=== PATIENT | female | born 1985 | race Caucasian/White ===

== ENCOUNTER 2017-05-29 00:30 | Observation (INO) | payer OTHER ==
--- NOTE | 2017-05-29 01:28 | OBHP ---
Datetime: 05/29/2017 01:16 IP Adm Impression: Term, intrauterine Admit Comment, IP Provider: 32 y/o @ 39.5 wks GA MARCO ANTONIO 05/31/17 c/o of ctxirregular since 6pm increasinign over past 2 hours over ever y5-6 min, 09/15, densoham sany lof, vb, ctx, +FM. Pt reports a small drop come out when she got into bed, roge any large gush. pt reports was examined by pmd [facility] and was closed on exam. 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: Denies hx of abnormal pap, fibaoird, ovairan cyst, STI PMH: Anemia PSH: denies CHX: GM: cervical cancer MEDS: PNV< Iron (limited duration , unable to tolerate) SHX: negative etoh/tobacc/durgs NKDA A/P 32 y/o @ 39.5 wks GA not in labor -plan as per pmd Pelvic Type - PN: Adequate Extremities - PN: Normal Abdomen - PN: Normal Back - PN: Normal Breast - PN: Not Done Lungs - PN: Normal Heart - PN: Normal Thyroid - PN: Not Done Neurologic - PN: Normal HEENT - PN: Normal General - PN: Normal Presentation-Admit: Vertex FHR - Baseline A Provider: 150 Membranes, Provider: Intact Contraction Comments Provider: q 5 min/iregular Comments, ACOG Physical Exam: Amnisure ngeative negative pooling , ferning, nitrazine limited exam: clsoed, long, posteriod Gestation - Est Wks by US: 39.5 EGA AdmitDate IP: 39.5 Vital Signs Provider: Reviewed; Within Normal Limits IP Chief Complaint: Uterine contractions NICHD Variability Prov Fetus A: Moderate 6-25bpm NICHD Accel Fetus A IP Provider: 15X15 FHR Category Provider Fetus A: Category I NICHD Decel Fetus A IP Provider: None Dilatation, Provider: 0 Genitourinary Exam: Normal DTRs - PN: Normal
[2017-05-29 01:37] VITALS: BMI 29.8
[2017-05-29] MEDS ORDERED: Lactated Ringer's 1,000 ML IV SCH (01:45)
[2017-05-29 02:17] LABS: BASO % 0.4 % (0.0-2.0); EOS # 0.1 K/uL (0.0-0.7); EOS % 0.9 % (0.0-4.0); HEMOGLOBIN 10.1 g/dL (11.0-16.0); LYMPH % 24.5 % (20.0-40.0); MEAN CELL VOLUME 79.5 fL (81.0-99.0); MEAN CORPUSCULAR HEMOGLOBIN 26.2 pg (27.0-31.0); MEAN PLATELET VOLUME 10.3 fL (7.2-11.7); MONO # 0.3 K/uL (0.0-0.8); MONO % 4.1 % (0.0-10.0); NEUT # 5.7 K/uL (1.8-7.0); NEUT % 70.1 % (50.0-75.0); NRBC % 0.1 % (0.0-2.0); RBC 3.85 Mil/uL (3.80-5.20); RED CELL DISTRIBUTION WIDTH 15.7 % (11.5-14.5); WHITE BLOOD COUNT 8.2 K/uL (4.8-10.8)
[2017-05-29 02:23] LABS: SQUAMOUS EPITHIAL 1 /hpf (0-5); URINE BACTERIA RARE (<OCC); URINE BILIRUBIN NEGATIVE (NEGATIVE); URINE BLOOD NEGATIVE (NEGATIVE); URINE CLARITY Clear (Clear); URINE COLOR Straw (YELLOW); URINE GLUCOSE (UA) NORMAL (Normal); URINE LEUKOCYTE ESTERASE TRACE Leu/uL (Negative); URINE NITRATE NEGATIVE (NEGATIVE); URINE PROTEIN NEGATIVE (NEGATIVE); URINE UROBILINOGEN NORMAL mg/dL (0.2-1.0)
[2017-05-29 02:33] LABS: ALB/GLOB RATIO 0.9 (1.0-2.1); ALBUMIN 3.5 g/dL (3.5-5.0)
[2017-05-29 02:36] LABS: ALT/SGPT 18 U/L (9-52); AST/SGOT 17 U/L (14-36); BLOOD UREA NITROGEN 9 mg/dL (7-17); CALCIUM 8.8 mg/dl (8.6-10.4); GFR AFRICAN-AMERICAN > 60; GFR NON-AFRICAN AMERICAN > 60
--- NOTE | 2017-05-29 09:39 | OBDCSUM ---
Datetime: 05/29/2017 09:37 Discharged to, Provider: Home Follow up at, Provider: Dr Mcclendon Discharge Time: 05/29/2017 09:37 Follow up in weeks, Provider: this week Discharge Comment, Provider: labor precautions given Discharge Diagnosis Prov Other: false labor Contraception after Delivery: Not Planning to Use
--- NOTE | 2017-05-29 09:39 | OBPN ---
Datetime: 05/29/2017 01:16 Membranes, Provider: Intact Contraction Comments Provider: q 5 min/iregular FHR - Baseline A Provider: 150 Gestation - Est Wks by US: 39.5 Presentation-Admit: Vertex IP Progress Note Comment: pt admited for observation overnight pt seen and reexamined denies any pain, reports irregular non painful contraction, denies any lof, vb, +FM Pt was reexamined, uncahnged closed on exam plan dsicharge as per pmd labor purecaiotn given Vital Signs Provider: Reviewed; Within Normal Limits NICHD Accel Fetus A IP Provider: 15X15 FHR Category Provider Fetus A: Category I NICHD Variability Prov Fetus A: Moderate 6-25bpm Dilatation, Provider: 0 NICHD Decel Fetus A IP Provider: None
--- NOTE | 2017-05-29 12:43 | OBDCSUM ---
Datetime: 05/29/2017 09:42 Discharged to, Provider: Home Follow up at, Provider: Dr. Mcclendon Disch Instr Activity: Normal activity Disch Instr Diet: Regular Discharge Diet restrict Prov: na at this time Discharge Time: 05/29/2017 09:38 Follow up in weeks, Provider: Disch Referrals: None Discharge Comment, Provider: labor purecatuiosn given Discharge Diagnosis Prov Other: false labor Datetime: 05/29/2017 09:37 Discharged to, Provider: Home Follow up at, Provider: Dr Mcclendon Discharge Time: 05/29/2017 09:37 Follow up in weeks, Provider: this week Discharge Comment, Provider: labor precautions given Discharge Diagnosis Prov Other: false labor Contraception after Delivery: Not Planning to Use
== END 2017-05-29 09:35 | disposition home or self-care (01) ==
LOC: C.EROB 00:30 → C.4D 01:38 → INTOOBSV 01:38
PROVIDERS: ADMIT Obstetrics & Gynecology Gynecology; ATTEND Obstetrics & Gynecology Gynecology
DX: O47.1 False labor at or after 37 completed weeks of gestation (principal); Z3A.39 39 weeks gestation of pregnancy; O99.013 Anemia complicating pregnancy, third trimester
CPT/HCPCS: 80053; 81001; 85025; 86592; 86703; 86850; 86900; G0378; J7120

== ENCOUNTER 2017-05-30 21:05 | Inpatient (IN) | payer OTHER ==
[2017-05-29 01:37] VITALS: BMI 29.8
[2017-05-30] MEDS: Lactated Ringer's 1,000 ML IV SCH (21:35)
--- NOTE | 2017-05-30 21:35 | OBADHP ---
Datetime: 05/30/2017 21:30 Admit Comment, IP Provider: at 39.6weeks came with ctxs started in am, irrg , 6/0, no vb, lof=f m obhx 1 x pmh den me pnv all nkda psh den soch den ve 3-4/70/-2 a/p at 39=weks in active labor admit to l_d npo/ivf labs pain [place] cont nisreen and efm anticipate Pelvic Type - PN: Adequate Extremities - PN: Normal Abdomen - PN: Normal Back - PN: Normal Breast - PN: Normal Lungs - PN: Normal Heart - PN: Normal Thyroid - PN: Normal Neurologic - PN: Normal HEENT - PN: Normal General - PN: Normal FHR - Baseline A Provider: 140 Contraction Comments Provider: q1-4 Comments, ACOG Physical Exam: gravid,non tender ext no edea,no calf ten IP Hx Assessment: The History has been Reviewed and is Current Vital Signs Provider: Reviewed; Within Normal Limits IP Chief Complaint: Uterine contractions NICHD Variability Prov Fetus A: Moderate 6-25bpm NICHD Accel Fetus A IP Provider: 15X15 FHR Category Provider Fetus A: Category I Dilatation, Provider: 4 Effacement, Provider: 70 Station, Provider: -2 Genitourinary Exam: Normal DTRs - PN: Normal EGA AdmitDate IP: 39.6 IP Adm Impression: Term, intrauterine ; Active labor IP Admit Plan: Admit to unit; Initiate labor protocol Datetime: 05/29/2017 01:16 Presentation-Admit: Vertex Membranes, Provider: Intact Gestation - Est Wks by US: 39.5 NICHD Decel Fetus A IP Provider: None
[2017-05-30] MEDS ORDERED: Fentanyl/Bupivacaine HCl 250 ML EPI ONE (23:09)
[2017-05-31] MEDS ORDERED: Oxycodone/Acetaminophen 5/325 mg Tab PO PRN ×2 (01:45)
[2017-05-31] MEDS ORDERED: Lidocaine 2% Inj (20ml) ONE (02:50)
[2017-05-31] MEDS: Benzocaine/Menthol 20%-0.5% Topical Spray (60 ml) TOP PRN (06:56)
[2017-05-31] MEDS: Lactated Ringer's 1,000 ML IV SCH (06:57)
[2017-06-01 08:28] LABS: MEAN CELL VOLUME 80.5 fL (81.0-99.0); MEAN CORPUSCULAR HEMOGLOBIN 26.7 pg (27.0-31.0); MEAN CORPUSCULAR HGB CONC 33.1 g/dL (33.0-37.0); MEAN PLATELET VOLUME 9.8 fL (7.2-11.7); RBC 3.35 Mil/uL (3.80-5.20); RED CELL DISTRIBUTION WIDTH 15.6 % (11.5-14.5); WHITE BLOOD COUNT 10.5 K/uL (4.8-10.8)
--- NOTE | 2017-06-01 16:45 | OBDS ---
DELIVERY PERSONNEL Nurse Resource Agent Certified: N/A Delivery Doctor: Jauna Mcclendon MD Scrub Nurse: N/Jared Marble Installation Helper: Olga Liida Hines RN Anesthesiologist: Global Vp Creative + Content Marketing: SAME Resident: N/Jared MATERNAL INFORMATION Delivery Anesthesia: Local; Epidural Medications in Delivery: Pitocin Estimated Blood Loss (ml): 300 Placenta Cultured: No Maternal Complications: None RN Comments: live baby boy born via with 9_9 LABOR SUMMARY EDC: 05/31/2017 00:00 No. Babies in Womb: 1 Attempted: No Labor Anesthesia: Epidural LABOR INFORMATION Reason for Induction: Not Applicable Onset of Labor: 05/30/2017 18:00 Complete Dilatation: 05/31/2017 02:36 Group B Beta Strep: Negative MEMBRANES Membranes Rupture Method: Artificial Rupture of Membranes: 05/31/2017 02:35 Length of Rupture (hrs): 0.37 Amniotic Fluid Color: Clear Amniotic Fluid Amount: Large Amniotic Fluid Odor: Normal STAGES OF LABOR Stage 1 hrs: 8 Stage 1 min: 36 Stage 2 hrs: 0 Stage 2 min: 21 Stage 3 hrs: 0 Stage 3 min: 7 Total Time in Labor hrs: 9 Total Time in Labor min: 4 VAGINAL DELIVERY Episiotomy: Right Mediolateral Laceration Extension: N/A Laceration Type: None Laceration Repair: Yes Initial Vag Sponge Count: 10 Final Vag Sponge Count: 20 Final Vag Sharps Count: 4 Sponge Count Correct: Yes; Vaginal Sweep Performed Sharps Count Correct: Yes BABY A INFORMATION Delivery Date/Time: 05/31/2017 02:57 Method of Delivery: Vaginal Born in Route : No : N/A Forceps: N/A Vacuum Extraction: N/A Shoulder Dystocia : No SHOULDER DYSTOCIA BABY A Delivery Date/Time: 05/31/2017 02:57 PRESENTATION/POSITION BABY A Presentation: Cephalic Cephalic Presentation: Vertex Vertex Position: Left Occipital Anterior Breech Presentation: N/A PLACENTA INFORMATION BABY A Placenta Delivery Time : 05/31/2017 03:04 Placenta Method of Delivery: Spontaneous Placenta Status: Delivered SCORES BABY A Heart Rate 1 min: >100 bpm Resp Effort 1 min: Good Cry Reflex Irritability 1 min: Cough or Sneeze or Pulls Away Muscle Tone 1 min: Active Motion Color 1 min: Body [place], Extremities Blue SCORE 1 MIN: 9 Heart Rate 5 min: >100 bpm Resp Effort 5 min: Good Cry Reflex Irritability 5 min: Cough or Sneeze or Pulls Away Muscle Tone 5 min: Active Motion Color 5 min: Body [place], Extremities Blue SCORE 5 MIN: 9 INFORMATION BABY A Gestational Age at Delivery: 40.0 Gestational Status: Term Outcome : Liveborn Condition : Stable Sex: Male IDENTIFICATION/MEDS BABY A ID Band Number: [id number] ID Band Location: Left Leg; Left Arm Sensor Applied: Yes Sensor Number: [id number] Sensor Location : Cord Clamp WEIGHT/LENGTH BABY A Infant Birthweight (gms): 3525 Weight (lb): 7 Weight (oz): 12 Infant Length Inches: 20.00 Infant Length cms: 50.8 CORD INFORMATION BABY A No. Cord Vessels: 3 Nuchal Cord : N/A Cord Blood Taken: Yes Infant Suction: Mouth; Nose ASSESSMENT BABY A Complications: None Physical Findings at Delivery: Within Normal Limits Respirations: Appears Normal [place] Dredger/ALS Called : No Infant Care By: ANNAMARIE Morse/ Transferred To: Remains with Mother
--- NOTE | 2017-06-01 16:51 | OBDCSUM ---
Datetime: 06/01/2017 16:49 Discharged to, Provider: Home Follow up at, Provider: Dr. Mcclendon Disch Instr Activity: Normal activity; May Shower Disch Instr Diet: Regular Discharge Instructions, Provider: Routine instructions given Discharge Diagnosis, Provider: Term Delivered Follow up in weeks, Provider: 4 weeks Disch Referrals: None Contraception discussed, Prov: Yes Disch Activity Restrictions: No sexual activity; Nothing in vagina - Blunt, tampons, douche Contraception after Delivery: Not Planning to Use
--- NOTE | 2017-06-01 16:51 | OBPPN ---
Datetime: 06/01/2017 16:46 PP Pain Prov: Within normal limits PP Breasts Prov: Normal PP Heart Prov: Normal PP Lungs Prov: Normal PP Abdomen/Uterus Prov: Normal PP Lochia Prov: Normal PP Vulva/Perineum Prov: Normal PP CVA Tenderness Prov: Normal PP Extremities Prov: Normal PP C/S Incision Prov: Normal PP Progress Prov: Normal PP Impression Prov: Normal progression PP Plan Prov: Discharge PP Progress Note Prov: PPD #! No C/O Abdomen Soft HOF -3 P: Pt wants to go home today Home today IP PP Procedures: None
[2017-06-01 17:17] VITALS: PULSE 85; RESP 20; TEMP 97.1; O2SAT 100
[2017-06-01] MEDS ORDERED: Influenza Vaccine 60 mcg/0.5 mL SYR (4YR UP) IM ONE (17:30)
[2017-06-01] MEDS: Benzocaine/Menthol 20%-0.5% Topical Spray (60 ml) TOP PRN (17:37)
[2017-06-01 23:39] VITALS: BP 96/71
--- NOTE | 2017-06-02 00:59 | OBADHP ---
Datetime: 05/30/2017 21:30 EGA AdmitDate IP: 39.6
== END 2017-06-01 17:30 | disposition home or self-care (01) | DRG 775 ==
LOC: C.EROB 21:05 → C.4D 21:31 → C.4M 05-31 05:00
PROVIDERS: ADMIT Obstetrics & Gynecology Gynecology; ATTEND Obstetrics & Gynecology Gynecology
PROC: 0W8NXZZ Division of Female Perineum, External Approach (ICD-10-PCS; principal; 2017-05-30)
PROC: 10E0XZZ Delivery of Products of Conception, External Approach (ICD-10-PCS; 2017-05-30)
DX: O80 Encounter for full-term uncomplicated delivery (principal); Z3A.39 39 weeks gestation of pregnancy; Z37.0 Single live birth